=== PATIENT | female | born 1985 | race Caucasian/White ===

== ENCOUNTER 2019-02-20 11:02 | Outpatient (CLI) | payer MEDICAID ==
[2019-02-20 11:35] LABS: ADD MAN DIFF? NO
[2019-02-20 11:38] LABS: ADD UMIC NO; BASOPHILS % 0.1 % (0.0-2.0); EOSINOPHILS % 0.6 % (0.0-7.0); HEMATOCRIT 36.5 % (37.0-47.0); HEMOGLOBIN 12.5 g/dl (12.0-16.0); LYMPHOCYTES # 1.8 10^3/ul (0.8-2.9); LYMPHOCYTES % 25.8 % (15.0-51.0); MEAN CORPUSCULAR HEMOGLOBIN 31.7 pg (29.0-33.0); MEAN CORPUSCULAR HGB CONC 34.2 g/dl (32.0-37.0); MEAN CORPUSCULAR VOLUME 92.6 fl (82.0-101.0); MEAN PLATELET VOLUME 10.6 fl (7.4-10.4); MONOCYTE # 0.5 10^3/ul (0.3-0.9); MONOCYTES % 6.4 % (0.0-11.0); NEUTROPHIL # 4.7 10^3/ul (1.6-7.5); NEUTROPHILS % 66.7 % (39.0-77.0); PLATELET COUNT 200 10^3/UL (140-415); RED BLOOD COUNT 3.94 10^6/ul (4.20-5.40); RED CELL DISTRIBUTION WIDTH 12.7 % (11.5-14.5); UR ASCORBIC ACID NEGATIVE (NEGATIVE); UR BACTERIA FEW /HPF (NONE SEEN); UR BILIRUBIN (Dip) NEGATIVE (NEGATIVE); UR BLOOD (Dip) NEGATIVE (NEGATIVE); UR BUDDING YEAST FEW /HPF (NONE SEEN); UR CLARITY SLIGHTLY CLOUDY (CLEAR); UR COLOR YELLOW (YELLOW); UR GLUCOSE (Dip) NEGATIVE (NEGATIVE); UR KETONES (Dip) NEGATIVE (NEGATIVE); UR LEUKOCYTE ESTERASE (Dip) NEGATIVE Leu/ul (NEGATIVE); UR NITRITE (Dip) NEGATIVE (NEGATIVE); UR RBC 6 /HPF (0-5); UR SPECIFIC GRAVITY (Dip) 1.005 (1.003-1.030); UR SQUAMOUS EPITHELIAL CELL FEW /HPF (FEW); UR TOTAL PROTEIN (Dip) NEGATIVE (NEGATIVE); UR UROBILINOGEN (Dip) NEGATIVE (NEGATIVE); UR WBC 3 /HPF (0-5)
[2019-02-20 11:56] LABS: ALANINE AMINOTRANSFERASE 25 IU/L (13-69); ALBUMIN 3.5 g/dl (3.3-4.9); ALBUMIN/GLOBULIN RATIO 1.25; ALKALINE PHOSPHATASE 153 IU/L (42-121); ANION GAP 7 (5-13); ASPARTATE AMINO TRANSFERASE 26 IU/L (15-46); BILIRUBIN,INDIRECT 0.4 mg/dl (0-1.1); BILIRUBIN,TOTAL 0.4 mg/dl (0.2-1.3); BLOOD UREA NITROGEN 7 mg/dl (7-20); CALCIUM 9.8 mg/dl (8.4-10.2); CARBON DIOXIDE 23 mmol/L (21-31); CHLORIDE 107 mmol/L (97-110); CREATININE 0.46 mg/dl (0.44-1.00); Estimated GFR > 60 mL/min (>60); GLUCOSE 77 mg/dl (70-220); POTASSIUM 3.9 mmol/L (3.5-5.1); SODIUM 137 mmol/L (135-144); TOTAL PROTEIN 6.3 g/dl (6.1-8.1); URIC ACID 3.7 mg/dl (3.1-7.9)
[2019-02-20 11:58] LABS: PROTIME 11.2 Sec (11.9-14.9); PT RATIO 0.9
[2019-02-20 11:59] LABS: PARTIAL THROMBOPLASTIN TIME 24.9 Sec (23.0-35.0)
== END 2019-02-20 15:45 | disposition home or self-care (01) ==
LOC: OBT 11:02 → L-D 11:03 → OBT 15:45
DX: O26.893 Other specified pregnancy related conditions, third trimester (principal); R10.13 Epigastric pain; Z3A.38 38 weeks gestation of pregnancy
CPT/HCPCS: 76818; 80053; 81001; 81003; 84560; 85025; 85384; 85610; 85730

== ENCOUNTER 2019-02-27 04:12 | Inpatient (IN) | payer MEDICAID ==
[2019-02-27] MEDS ORDERED: LACTATED RINGER'S 1,000 ML IV (04:43)
[2019-02-27] MEDS ORDERED: OXYTOCIN 30 UNITS/LR 500 ML IV ×4 (04:51→06:00)
[2019-02-27] MEDS ORDERED: LIDOCAINE 1% (MPF) 30 ML INJ (04:51)
[2019-02-27] MEDS ORDERED: MINERAL OIL LIGHT 10 ML VIAL (04:51)
[2019-02-27] MEDS ORDERED: CARBOPROST 250 MCG INJ IM ×2 (05:00→06:00)
[2019-02-27] MEDS ORDERED: MISOPROSTOL 200 MCG TAB PR ×2 (05:00→06:00)
[2019-02-27] MEDS ORDERED: BUTORPHANOL 2 MG INJ IV (05:00)
[2019-02-27] MEDS ORDERED: METHYLERGONOVINE 0.2 MG INJ IM ×2 (05:00→06:00)
[2019-02-27 05:13] LABS: ADD MAN DIFF? NO
[2019-02-27 05:23] LABS: BASOPHILS % 0.1 % (0.0-2.0); EOSINOPHILS % 0.4 % (0.0-7.0); HEMOGLOBIN 14.2 g/dl (12.0-16.0); LYMPHOCYTES # 2.1 10^3/ul (0.8-2.9); MEAN CORPUSCULAR HEMOGLOBIN 32.3 pg (29.0-33.0); MEAN CORPUSCULAR HGB CONC 34.6 g/dl (32.0-37.0); MEAN CORPUSCULAR VOLUME 93.2 fl (82.0-101.0); MEAN PLATELET VOLUME 11.3 fl (7.4-10.4); MONOCYTE # 0.7 10^3/ul (0.3-0.9); MONOCYTES % 6.8 % (0.0-11.0); NEUTROPHIL # 7.1 10^3/ul (1.6-7.5); NEUTROPHILS % 71.4 % (39.0-77.0); PLATELET COUNT 187 10^3/UL (140-415); RED CELL DISTRIBUTION WIDTH 12.9 % (11.5-14.5)
[2019-02-27 05:23] LABS: WHITE BLOOD COUNT 9.9 10^3/ul (4.8-10.8)
[2019-02-27] MEDS ORDERED: NALOXONE (0.4 MG/ML) INJ IV (05:30)
[2019-02-27] MEDS ORDERED: FENTAnyl 2MCG/ML-ROPIV 0.2% 100 ML BAG EPI (05:30)
[2019-02-27] MEDS: LACTATED RINGER'S 1,000 ML IV (05:35)
[2019-02-27 05:41] LABS: INR 0.89; PARTIAL THROMBOPLASTIN TIME 25.3 Sec (23.0-35.0); PROTIME 12.1 Sec (11.9-14.9); PT RATIO 0.9
[2019-02-27] MEDS: OXYTOCIN 30 UNITS/LR 500 ML IV ×3 (05:50→10:49)
[2019-02-27] MEDS ORDERED: ONDANSETRON 4 MG INJ IV (06:00)
[2019-02-27] MEDS ORDERED: OXYCODONE/ASPIRIN (4.88/325) TAB PO (06:00)
[2019-02-27] MEDS ORDERED: NACL 0.9% 3 ML SYG IV (06:00)
[2019-02-27] MEDS ORDERED: ACETAMINOPHEN 325 MG TAB PO (06:00)
[2019-02-27] MEDS: LIDOCAINE 1% (MPF) 30 ML INJ INJ (06:05)
[2019-02-27] MEDS: IBUPROFEN 600 MG TAB PO ×5 (07:01→23:59)
[2019-02-27] MEDS: SENNA/DOCUSATE NA (8.6MG/50MG) TAB PO ×2 (09:47→21:40)
[2019-02-27] MEDS: OXYCODONE/ASPIRIN (4.88/325) TAB PO (10:19)
[2019-02-27] MEDS: LANOLIN HPA 1 PKT TOP (10:48)
[2019-02-27] MEDS: BENZOCAINE 20% 56 ML SPRAY TOP (10:48)
[2019-02-27] MEDS: WITCH HAZEL/GLYCERIN PAD PR (10:48)
[2019-02-27 14:58] LABS: RAPID PLASMA REAGIN NONREACTIVE (NR)
[2019-02-28] MEDS: IBUPROFEN 600 MG TAB PO ×4 (05:41→23:46)
[2019-02-28 06:52] LABS: ADD MAN DIFF? NO
[2019-02-28 07:00] LABS: WHITE BLOOD COUNT 8.8 10^3/ul (4.8-10.8)
[2019-02-28 07:00] LABS: BASOPHILS % 0.2 % (0.0-2.0); EOSINOPHILS % 0.5 % (0.0-7.0); HEMATOCRIT 35.2 % (37.0-47.0); HEMOGLOBIN 11.9 g/dl (12.0-16.0); LYMPHOCYTES # 1.8 10^3/ul (0.8-2.9); LYMPHOCYTES % 20.5 % (15.0-51.0); MEAN CORPUSCULAR HEMOGLOBIN 32.2 pg (29.0-33.0); MEAN CORPUSCULAR HGB CONC 33.8 g/dl (32.0-37.0); MEAN CORPUSCULAR VOLUME 95.4 fl (82.0-101.0); MEAN PLATELET VOLUME 10.6 fl (7.4-10.4); MONOCYTE # 0.6 10^3/ul (0.3-0.9); MONOCYTES % 7.2 % (0.0-11.0); NEUTROPHIL # 6.3 10^3/ul (1.6-7.5); NEUTROPHILS % 71.1 % (39.0-77.0); PLATELET COUNT 158 10^3/UL (140-415); RED BLOOD COUNT 3.69 10^6/ul (4.20-5.40)
[2019-02-28] MEDS: SENNA/DOCUSATE NA (8.6MG/50MG) TAB PO ×2 (09:16→21:00)
[2019-03-01] MEDS: IBUPROFEN 600 MG TAB PO ×2 (05:40→11:21)
[2019-03-01] MEDS: SENNA/DOCUSATE NA (8.6MG/50MG) TAB PO (09:00)
== END 2019-03-01 15:50 | disposition home or self-care (01) | DRG 807 ==
LOC: OBT 04:12 → L-D 04:15 → OBT 04:34 → L-D 04:34 → PP1 07:44
PROVIDERS: Obstetrics & Gynecology
PROC: 10E0XZZ Delivery of Products of Conception, External Approach (ICD-10-PCS; principal; 2019-02-27)
PROC: 0HQ9XZZ Repair Perineum Skin, External Approach (ICD-10-PCS; 2019-02-27)
DX: O70.0 First degree perineal laceration during delivery (principal); Z37.0 Single live birth; Z3A.39 39 weeks gestation of pregnancy
CPT/HCPCS: 85025; 85610; 85730; 86592; 86850; 86900; 86901